=== PATIENT | female | born 2000 | race Two or more races ===

== ENCOUNTER 2019-07-08 14:54 | Emergency (ER) | payer OTHER ==
[~2019-07-08] VITALS: Ht 157.5 cm; Wt 79.4 kg
[2019-07-08 15:25] VITALS: BP 146/89
--- NOTE | 2019-07-08 15:26 | NUR ---
ED Nurse Note:urine sent to labs
[2019-07-08] MEDS ORDERED: Ketorolac 30mg Inj IM ONE (16:15)
[2019-07-08] MEDS ORDERED: Prochlorperazine 10mg tab ORAL ONE (16:15)
[2019-07-08 16:17] LABS: APPEARANCE,URINE CLEAR; BILIRUBIN, URINE NEGATIVE (NEGATIVE); COLOR,URINE PALE YELLOW; GLUCOSE, URINE (UA) NEGATIVE (NEGATIVE); KETONES,URINE NEGATIVE (NEGATIVE); LEUKOCYTE ESTERASE ,URINE NEGATIVE (NEGATIVE); NITRITE,URINE NEGATIVE (NEGATIVE); PH,URINE 6 (4.5-8.0); PROTEIN,URINE NEGATIVE (NEGATIVE); UROBILINOGEN,URINE NORMAL MG/DL (0.0-1.0)
--- NOTE | 2019-07-08 16:55 | Emergency Room Report ---
History of Present Illness General Chief Complaint: Headache Source: Patient Present Illness HPI 19-year-old female presents to the emergency department complaining of 10 out of 10 severity progressive onset right-sided and frontal headache x3 days. Patient reports that she has had several headaches over the course of the last 2 weeks. She denies history of headaches or migraines. Patient denies fevers, chills, nausea, vomiting, paresthesias or loss of gross motor movements. Patient denies slurred speech or alterations in her mental status. Patient reports that she has a history of anxiety and that she started taking Lexapro 3 days ago. Patient denies recent head trauma or fall. She denies dizziness, visual changes or auditory symptoms. She reports that she has been taking Tylenol at home with no relief of her symptoms. She also reports that she stopped drinking caffeine recently and she was previously a daily caffeine user. Patient states that when she had a cup of coffee it did not relieve her headache. She denies neck pain or stiffness. She reports her BP has been elevated as well. She denies history of high blood pressure. She denies CP, Palpitations, or SOB. Allergies: Coded Allergies: No Known Allergies (Unverified , 07/08/19) Patient History Past Medical History: see triage record, psych hx - anxiety- just started lexapro 3 days ago Past Surgical History: none Pertinent Family History: none Last Menstrual Period: 07/03/19 Now: No : 0 Para: 0 Reviewed Nursing Documentation: PMH: Agreed; PSxH: Agreed Nursing Documentation-PMH Past Medical History: No History, Except For Hx Hypertension: Yes Review of Systems All Other Systems: negative except mentioned in HPI Physical Exam Vital Signs Date Time Temp Pulse Resp B/P (MAP) Pulse Ox O2 Delivery O2 Flow Rate FiO2 07/08/19 15:01 98.1 72 18 146/89 (108) 98 Room Air Sp02 EP Interpretation: reviewed, normal General Appearance: no apparent distress, alert, GCS 15, non-toxic Head: normocephalic, atraumatic Eyes: bilateral eye normal inspection, bilateral eye PERRL, bilateral eye EOMI , bilateral eye other - no photophobia or nystagmus on exam. ENT: hearing grossly normal, normal voice Neck: full range of motion, no meningismus, no bony tend Respiratory: lungs clear, normal breath sounds, speaking full sentences Cardiovascular #1: regular rate, rhythm Musculoskeletal: back normal, normal range of motion, gait/station normal, non- tender Neurologic: alert, motor strength/tone normal, oriented x3, sensory intact, responsive, speech normal, normal gait, no pronator, grossly normal, no focal defects, other - no nystagmus. Psychiatric: judgement/insight normal Skin: no rash Medical Decision Making PA Attestation Dr. Dempsey Is my supervising Physician whom patient management has been discussed with. Diagnostic Impression: Primary Impression: Headache Qualified Codes: G44.209 - Tension-type headache, unspecified, not intractable Additional Impression: Elevated blood pressure reading ER Course 19-year-old female presents to the emergency department complaining of 10 out of 10 severity progressive onset right-sided and frontal headache x3 days. Patient reports that she has had several headaches over the course of the last 2 weeks. She denies history of headaches or migraines. Patient denies fevers, chills, nausea, vomiting, paresthesias or loss of gross motor movements. Patient denies slurred speech or alterations in her mental status. Patient reports that she has a history of anxiety and that she started taking Lexapro 3 days ago. Patient denies recent head trauma or fall. She denies dizziness, visual changes or auditory symptoms. She reports that she has been taking Tylenol at home with no relief of her symptoms. She also reports that she stopped drinking caffeine recently and she was previously a daily caffeine user. Patient states that when she had a cup of coffee it did not relieve her headache. She denies neck pain or stiffness. She reports her BP has been elevated as well. She denies history of high blood pressure. She denies CP, Palpitations, or SOB Ddx considered but are not limited to migraine, SAH, Pseudomotor Cerebri,, Mass lesion, Cluster INFANTE, Tension INFANTE, Post lumbar puncture INFANTE, UTI, Medication SE, caffeine withdrawal headache Vital signs: are WNL, pt. is afebrile. Her BP is elevated but not in a concerning range for resultant emergent conditions H&PE are most consistent with possible caffeine withdrawal headache-the patient is nontoxic in appearance she currently is in no acute distress and she does not exhibit any focal neurological deficits. ORDERS: - UA: WNL -Urine Hcg: Negative ED INTERVENTIONS: - Compazine PO -IM Toradol -Benadryl PO DISCHARGE: At this time pt. is stable for d/c to home. Will provide printed patient care instructions, and any necessary prescriptions. Care plan and follow up instructions have been discussed with the patient prior to discharge. Labs Test 07/08/19 15:38 Urine Color Pale yellow Urine Appearance Clear Urine pH 6 (4.5-8.0) Urine Specific Taylor 1.010 (1.005-1.035) Urine Protein Negative (NEGATIVE) Urine Glucose (UA) Negative (NEGATIVE) Urine Ketones Negative (NEGATIVE) Urine Blood Negative (NEGATIVE) Urine Nitrite Negative (NEGATIVE) Urine Bilirubin Negative (NEGATIVE) Urine Urobilinogen Normal MG/DL (0.0-1.0) Urine Leukocyte Esterase Negative (NEGATIVE) Urine HCG, Qualitative Negative (NEGATIVE) Last Vital Signs Date Time Temp Pulse Resp B/P (MAP) Pulse Ox O2 Delivery O2 Flow Rate FiO2 07/08/19 15:25 98.1 18 146/89 98 Room Air 07/08/19 15:01 72 Disposition: HOME, SELF-CARE Condition: Stable Scripts Aspirin/Acetaminophen/Caffeine (EXCEDRIN MIGRAINE GELTAB) 1 Each Tablet 1 EACH PO Q6HR, #30 TAB Prov: Bridget Galvez 07/08/19 Patient Instructions: Tension Headache Additional Instructions: Take medications as directed. Follow up with a Primary Care Provider and Neurologist in 3-5 days, even if your symptoms have resolved. Return sooner to ED if new symptoms occur, or current symptoms become worse. - Please note that this Emergency Department Report was dictated using [employer] product cutting machine operator technology software, occasionally this can lead to erroneous entry secondary to interpretation by the dictation equipment. Bridget Galvez Jul 08, 2019 16:55
[2019-07-08] MEDS ORDERED: EXCEDRIN MIGRA1 EACH PO (17:01)
[2019-07-08 17:10] VITALS: BP 146/89
--- NOTE | 2019-07-08 17:10 | NUR ---
ER DISCHARGE NOTE: Patient is cleared to be discharged per ERMD, pt is aox4, on room air, with stable vital signs. pt was given dc and prescription instructions, pt was able to verbalize understanding, pt is able to ambulate with steady gait. pt took all belongings.
== END 2019-07-08 17:10 | disposition home or self-care (01) ==
LOC: EMR 16:55
DX: G44.209 Tension-type headache, unspecified, not intractable (principal); I10 Essential (primary) hypertension
CPT/HCPCS: 81003; 81025; 96372; J1885; Z7502; 99283